=== PATIENT | male | born 1975 | race Hispanic/Latino ===

== ENCOUNTER → 2017-10-28 | Outpatient (CLI) | payer OTHER ==
--- NOTE | 2017-10-28 10:49 | DIREP ---
PROCEDURE:MR SHOULDER WITHOUT CONTRAST [Right] TECHNIQUE:Axial proton density fat sat; sagittal oblique T1 and T2 fat sat; coronal oblique proton density fat sat, T2 and inversion recovery sequences were obtained. COMPARISON:None. INDICATIONS:CHRONIC RIGHT SHOULDER PAIN FINDINGS: Rotator cuff: Partial tear is present along the articular surface of the distal supraspinatus tendon measuring 0.7 cm diameter coronal series 701, image 10 and sagittal series 901, image 18. The depth of tear is less than 50%. The infraspinatus, teres minor and subscapularis tendons are intact. The rotator cuff muscles are normal in signal and morphology. There is fluid in the subacromial subdeltoid bursa consistent with bursitis. Coracoacromial arch: The acromion is type 2. Narrowing is present at the acromioclavicular joint. The coracoacromial and coracoclavicular ligaments are intact. The coracoid is normal in configuration. Bones and joints space: There is no fracture, marrow edema, destructive intraosseous lesion, Hill-Sachs deformity or evidence of avascular necrosis. The amount of joint fluid is within physiologic range. There are no loose bodies. Labrum and capsule: The labrum and capsule are intact. There is no para-labral cyst. Biceps tendon: The long head of the biceps tendon is normal in signal and morphology and is normally situated in the intertubercular groove. Miscellaneous: There is no muscle edema or atrophy. There is no soft tissue mass lesion. The neurovascular structures are normal. CONCLUSION: 1. Partial tear articular surface of the supraspinatus tendon. The depth of tear is less than 50%. 2. Fluid in the subacromial subdeltoid bursa consistent with bursitis. Dictated by: Laith Montes M.D. on 10/28/2017 at 10:45 AM
== END | disposition home or self-care (01) ==
LOC: MRI 09:00
PROVIDERS: ATTEND Family Medicine
DX: S43.421S Sprain of right rotator cuff capsule, sequela (principal); X58.XXXD Exposure to other specified factors, subsequent encounter
CPT/HCPCS: 73221-RT